=== PATIENT | male | born 1980 | race Caucasian/White ===

== ENCOUNTER 2020-03-01 13:41 | Observation (INO) | payer OTHER ==
[~2020-03-01] VITALS: Ht 180.3 cm; Wt 91.0 kg
[~2020-03-01 13:41] MED LIST: OXYACE5T PO; RXOXYACE PO
[2020-03-01 14:00] LABS: BASOPHILS ABSOLUTE AUTO 0.03 K/mm3 (0.00-0.23); BASOPHILS PERCENT AUTO 0 % (0-2); EOSINOPHILS ABSOLUTE AUTO 0.07 K/mm3 (0.00-0.68); EOSINOPHILS PERCENT AUTO 1 % (0-6); Hemoglobin 14.6 g/dL (13.5-17.5); IMMATURE GRAN ABSOLUTE AUTO 0.01 K/mm3 (0.00-0.10); IMMATURE GRAN PERCENT AUTO 0 % (0-1); LYMPHOCYTES ABSOLUTE AUTO 3.22 K/mm3 (0.84-5.20); LYMPHOCYTES PERCENT AUTO 33 % (21-46); MONOCYTES ABSOLUTE AUTO 0.55 K/mm3 (0.16-1.47); MONOCYTES PERCENT AUTO 6 % (4-13); Mean Corpuscular HGB 30.4 pg (26.0-34.0); Mean Corpuscular Volume 89 fL (80-100); Mean Platelet Volume 10.6 fL (9.1-12.4); NEUTROPHILS ABSOLUTE AUTO 5.82 K/mm3 (1.96-9.15); NEUTROPHILS PERCENT AUTO 60 % (41-73); Platelet Count 258 K/mm3 (150-400); RDW Coefficient Variation 12.1 % (11.7-14.2); RDW Standard Deviation 39.4 fL (35.1-46.3); Red Blood Cell Count 4.81 M/mm3 (4.30-5.90)
[2020-03-01 14:23] LABS: Alanine Aminotransfer (ALT/SGP 35 U/L (12-78); Albumin, Blood 3.8 g/dL (3.4-5.0); Alk Phos 75 U/L (50-136); Anion Gap 5 mmol/L (6-16); Aspartate Aminotrans (AST/SGOT 28 U/L (12-37); Bilirubin, Total 0.3 mg/dL (0.1-1.0); Blood Urea Nitrogen 17 mg/dL (8-24); Bun/Creatinine Ratio 20.3 (12.0-20.0); CO2, Blood 28 mmol/L (21-32); Calcium, Blood 8.8 mg/dL (8.5-10.1); Chloride, Blood 106 mmol/L (98-108); Creatinine, Blood 0.84 mg/dL (0.60-1.20); Globulin, Blood 3.8 g/dL (2.2-4.0); Glomerular Filtration Rate >60 (60-); Glucose, Blood 160 mg/dL (70-99); Potassium, Blood 4.1 mmol/L (3.5-5.5); Sodium, Blood 139 mmol/L (136-145); Total Protein, Blood 7.6 g/dL (6.4-8.2)
[2020-03-01 14:35] LABS: International Normalized Ratio 1.02; Prothrombin Time Results 10.9 Sec (9.7-11.5)
--- NOTE | 2020-03-01 16:57 | NUR ---
History, Chart, Medications and Allergies reviewed before start of procedure.Lungs clear T/O to Auscultation. Pre-Op teaching done. Pt verbalizes understanding. Patient States Post-Procedure ride home has been arranged. THE PATIENT WAS BROUGHT TO D/S FROM THE ER FOR ANKLE SURGERY.
[2020-03-01 16:59] LABS: Adenovirus Not Detected (NOT DETECT); Bordetella pertussis Not Detected (NOT DETECT); Chlamydophila pneumoniae Not Detected (NOT DETECT); Coronavirus 229E Not Detected (NOT DETECT); Coronavirus HKU1 Not Detected (NOT DETECT); Coronavirus NL63 Not Detected (NOT DETECT); Coronavirus OC43 Not Detected (NOT DETECT); Human Metapneumovirus Not Detected (NOT DETECT); Human Rhinovirus/Enterovirus Not Detected (NOT DETECT); Influenza A/2009-H1 Not Detected (NOT DETECT); Influenza A/H1 Not Detected (NOT DETECT); Influenza A/H3 Not Detected (NOT DETECT); Influenza B Not Detected (NOT DETECT); Mycoplasma pneumoniae Not Detected (NOT DETECT); Parainfluenza Virus 1 Not Detected (NOT DETECT); Parainfluenza Virus 2 Not Detected (NOT DETECT); Parainfluenza Virus 3 Not Detected (NOT DETECT); Parainfluenza Virus 4 Not Detected (NOT DETECT); Respiratory Syncytial Virus Not Detected (NOT DETECT); SARS-Cov-2 (COVID-19), BioFire Not Detected (NOT DETECT)
--- NOTE | 2020-03-01 21:04 | NUR ---
PT TO ICU 2 FOR PACU RECOVERY @ 2007, PT AROUSES TO VERBAL STIMULI, ORIENTED AND FOLLOWING COMMANDS. PT ON 15L PER NRB QUICKLY TITRATED TO RA WITH 02 SATURATIONS> 90%, LS CLEAR, PT ABLE TO COUGH AND DEEP BREATHE. PT REPORTS 8-9/10 PAIN TO R LEG, FENTANYL PROVIDED FOR PAIN MANAGEMENT (SEE MAR) EXTERNAL FIXATOR IN PLACE WITH ORTHOGLASS SPLINT AND ESTEBAN WRAP IN PLACE, PT ABLE TO MOVE ALL EXTREMETIES, GOOD CAP REFILL TO R TOES WITH SENSATION IN TACT. PT TOLERATING PO FLUIDS, STEPHANIE NAUSEA, SOME THROAT DISCOMFORT AND DRYNESS PRESENT. PTS NEPHEW AT BEDSIDE.
--- NOTE | 2020-03-01 21:24 | NUR ---
PT TRANSPORTED TO 213 [facility]IA [facility] WITH ICU PCT @ 2119
--- NOTE | 2020-03-02 06:05 | NUR ---
SHIFT SUMMARY: TULIO IS A&OX4. VSS, NO ACUTE EVENTS OVERNIGHT. HE IS TOLERATING PO INTAKE WELL. EXCELLENT URINE OUTPUT. EXTERNAL FIXATOR TO R ANKLE WITH HARDWARE UNCHANGED, SMALL AMOUNT OF SS DRAINAGE THIS MORNING. PT REPORTS PAIN TOLERABLE WITH PERCOCET AND DILAUDID. HE IS ABLE TO MAKE HIS NEEDS KNOWN. HE IS ABLE TO MOVE HIS RIGHT LEG FROM THE HIP WITHOUT DIFFICULTY. HE DOES STATE THAT HE HAS TWO STAIRS TO ENTER HIS HOME AND THAT HIS BEDROOM IS 12 STAIRS UP, BUT THAT HE WILL BE ABLE TO STAY IN THE LIVING ROOM TEMPORARILY. HOWEVER, THERE IS ONLY A HALF BATH ON THAT LEVEL OF THE HOME. HIS NEPHEW, KATE, WAS IN THE ROOM AT TIME OF ADMISSION AND STATED THAT TULIO WOULD HAVE SUFFICIENT HELP AT HOME. COMMUNITY RESOURCES WERE DISCUSSED. TULIO IS LYING IN BED WITH HIS CALL LIGHT IN REACH. WILL REPORT TO DAY SHIFT RN.
--- NOTE | 2020-03-02 12:37 | NUR ---
03/02/20 1237 Sissy Cantu VERIFICATIONS: EDIT CHART.
[2020-03-02] MEDS ORDERED: SULTRIDS PO (14:30)
[2020-03-02] MEDS ORDERED: Percocet 5-3251 EACH PO (14:36)
--- NOTE | 2020-03-02 16:23 | NUR ---
DISCHARGE SUMMARY PT A&OX4, VSS, LEFT WITH [employer] VIA WC WITH ALL PERSONAL POSSESSIONS INCLUDING DC PACKET. DC INSTRUCTIONS PROVIDED. PT REP UNDERSTANDING THOSE INSTRUCTIONS INCLUDING KEEP DRESSING CDI, WHEN TO CALL DR LOZANO/SEE 1 WK, XENA, CALLED [facility] TO CONFIRM THEY HAVE A SET OF CRUTCHES FOR PT TO PURCHASE, ELEVATE AT REST, CRUTCHES WITH ALL AMBULATION. IV DC'D X2.
[2020-03-07] MEDS ORDERED: HYDR1TAB94 PO (14:53)
== END 2020-03-02 15:00 | disposition home or self-care (01) ==
LOC: ER 13:41 → SURS 13:42
PROVIDERS: Emergency Medicine; ADMIT Surgery
DX: S82.841B Displaced bimalleolar fracture of right lower leg, initial encounter for open fracture type I or II (principal); S93.401A Sprain of unspecified ligament of right ankle, initial encounter; Z20.828 Contact with and (suspected) exposure to other viral communicable diseases; W11.XXXA Fall on and from ladder, initial encounter
CPT/HCPCS: 0202U; 27810; 71045; 72170; 73590; 73600; 73620; 80053; 85025; 85610; 85730; 86850; 86900; 86901; 90471; 96365-59; 96367-59; 97116; 97161; 97165; 97530; 97535; 99152; 99285-25; A9270; C1713; G0378; J0690; J1100; J1170; J1580; J1885; J2250; J2405; J2704; J2710; J2765; J3010; J3370; J7120

== ENCOUNTER 2020-03-10 09:08 | Day surgery (SDC) | payer OTHER ==
[~2020-03-10] VITALS: Ht 180.3 cm; Wt 88.6 kg
[~2020-03-10 09:08] MED LIST changes: +HYDR1TAB94 PO; +Percocet 5-3251 EACH PO; +SULTRIDS PO
--- NOTE | 2020-03-10 16:53 | NUR ---
REPORT GIVEN TO TORY PHILLIPS
--- NOTE | 2020-03-10 16:57 | NUR ---
TOOK OVER PATIENT CARE, AFTER REPORT WAS GIVEN.
== END 2020-03-10 23:06 | disposition home or self-care (01) ==
LOC: ORSCMMR 09:08 → ORD 09:08 → ORSCMMR 09:09 → ORD 10:30
PROVIDERS: Podiatrist Foot & Ankle Surgery
PROC: 0SPF05Z Removal of External Fixation Device from Right Ankle Joint, Open Approach (ICD-10-PCS; principal; 2020-03-10 10:30)
PROC: 0QSJ04Z Reposition Right Fibula with Internal Fixation Device, Open Approach (ICD-10-PCS; principal; 2020-03-10 10:30)
DX: S82.841D Displaced bimalleolar fracture of right lower leg, subsequent encounter for closed fracture with routine healing (principal)
CPT/HCPCS: A9270; C1713; C1769; C1776; J0171; J0690; J1100; J2250; J2405; J2704; J3010; J7120